=== PATIENT | female | born 1985 | race African-American/Black ===

== ENCOUNTER 2018-01-07 09:55 | Inpatient (IN) | payer OTHER ==
[2018-01-07] MEDS ORDERED: DEXTROSE 5%-LACTATED RINGERS 1,000 ML IV SCH (10:00)
[2018-01-07] MEDS ORDERED: OXYTOCIN 20 UNITS in 0.9% NS 20 UNIT/1,000 ML INFUS.BAG IV ONE ×2 (10:09→11:43)
[2018-01-07 10:46] LABS: VENOUS PC02 30.7 mmHg (38-52); VENOUS PH 7.46 (7.32-7.42); VENOUS PO2 46.5 mmHg (28-48)
[2018-01-07 10:48] LABS: ARTERIAL BLD GAS O2 SATURATION 30.8 % (90-98.9)
[2018-01-07 10:51] LABS: ARTERIAL BLOOD GAS PO2 18.9 mmHg (80-100)
[2018-01-07 10:56] VITALS: BMI 31.3
[2018-01-07 11:47] LABS: BASO % 0.2 % (0-2.0); EOS % 0.1 % (0-4.5); HEMATOCRIT 39.9 % (32.4-45.2); HEMOGLOBIN 13.5 GM/dL (10.7-15.3); LYMPH % 7.5 % (8-40); MCH 31.3 pg (25.7-33.7); MCHC 33.8 g/dl (32.0-36.0); MEAN CELL VOLUME 92.5 fl (80-96); MEAN PLT VOLUME 10.8 fl (7.5-11.1); MONO % 5.3 % (3.8-10.2); NEUT % 86.9 % (42.8-82.8); PLATELET COUNT 130 K/MM3 (134-434); RBC 4.32 M/mm3 (3.60-5.2); RDW 14.1 % (11.6-15.6); WHITE BLOOD COUNT 11.1 K/mm3 (4.0-10.0)
[2018-01-07 12:03] LABS: INR 0.94 (0.82-1.09); PROTHROMBIN TIME (PATIENT) 10.6 SEC (9.98-11.88)
[2018-01-07 12:05] LABS: ACTIVATED PTT 21.9 SECONDS (26.9-34.4)
[2018-01-07] MEDS ORDERED: WITCH HAZEL 50% (TUCKS) 40 PAD/JAR PAD TP PRN (12:07)
[2018-01-07] MEDS ORDERED: BISACODYL 10 MG SUPP.RECT RC PRN (12:07)
[2018-01-07] MEDS ORDERED: METHYLERGONOVINE MALEATE 0.2 MG/1 ML AMP IM PRN (12:07)
[2018-01-07] MEDS ORDERED: BENZOCAINE 28 GM HEMORRHOIDAL OINTMENT TP PRN (12:07)
[2018-01-07] MEDS ORDERED: BENZOCAINE 20% 57 GM BOTTLE TP PRN (12:07)
[2018-01-07] MEDS ORDERED: OXYTOCIN 20 UNITS in 0.9% NS 20 UNIT/1,000 ML INFUS.BAG IV SCH (12:15)
[2018-01-07] MEDS ORDERED: D5W-LR W/ 20 UNITS OXYTOCIN 1,000 ML IV SCH (12:15)
--- NOTE | 2018-01-07 12:16 | HP ---
Past Medical History - Primary Care Physician PCP:: Yovanny Devine - Admission Chief Complaint: 39 weeks , labor History of Present Illness: 32 yo f g 5 [id number] 39 weeks, in labor, cx full 100 vx 2+ . mi, bulging , had SROM , at delivery, meconium amniotic fluid, fhr cat 1, patient pushing History Source: Patient Limitations to Obtaining History: No Limitations - Past Medical History ...: 5 ...Para: 4 ...Term: 4 ...: 0 ...Spon : 0 ...Induced : 0 ...Multiple Gestation: 0 ...EDC by Sono: 01/10/18 - Past Surgical History Hx Myomectomy: No Hx Transabdominal Cerclage: No - Smoking History Smoking history: Never smoked Have you smoked in the past 12 months: No - Alcohol/Substance Use Hx Alcohol Use: No History of Substance Use: reports: None - Social History Usual Living Arrangement: Yes: With Spouse History of Recent Travel: No Home Medications - Allergies Allergies/Adverse Reactions: Allergies Allergy/AdvReac Type Severity Reaction Status Date / Time No Known Allergies Allergy Verified 01/07/18 11:09 - Home Medications Home Medications: Ambulatory Orders Plus Tablet 1 tab PO DAILY 07/21/16 Review of Systems - Review of Systems Constitutional: reports: No Symptoms Eyes: reports: No Symptoms HENT: reports: No Symptoms Neck: reports: No Symptoms Cardiovascular: reports: No Symptoms Respiratory: reports: No Symptoms Gastrointestinal: reports: No Symptoms Genitourinary: reports: No Symptoms Breasts: reports: No Symptoms Reported Musculoskeletal: reports: No Symptoms Integumentary: reports: No Symptoms Neurological: reports: No Symptoms Endocrine: reports: No Symptoms Hematology/Lymphatic: reports: No Symptoms Psychiatric: reports: No Symptoms Physical Exam - Maternity Vital Signs: Vital Signs Temperature 98.0 F 01/07/18 11:15 Pulse Rate 89 01/07/18 11:15 Respiratory Rate 18 01/07/18 11:15 Blood Pressure 124/80 01/07/18 11:15 O2 Sat by Pulse Oximetry (%) 100 01/07/18 11:15 Constitutional: Yes: Well Nourished, No Distress, Calm Eyes: Yes: WNL, Conjunctiva Clear, EOM Intact HENT: Yes: WNL, Atraumatic, Normocephalic Neck: Yes: WNL, Supple, Trachea Midline Cardiovascular: Yes: WNL, Regular Rate and Rhythm Breast(s): Yes: WNL - Abdominal Exam/OB Presentation: Vertex Contractions: Yes Regularity: Regular Intensity: Strong Monitor Mode: External Heart Rate Location: [facility] Category: I Accelerations: Uniform Decelerations: None - Vaginal Exam/OB Vaginal Bleediing: No Dilatation (cm): full Effacement (%): 100 Amniotic Membrane Status: Bulging Presentation: Vertex/Position Station: +2 - Physical Exam Musculoskeletal: Yes: WNL Extremities: Yes: WNL Edema: LLE: Trace, RLE: Trace Deep Tendon Reflex Grade: Normal +2 Psychiatric: Yes: WNL - Labs Lab Results: CBC, BMP 01/07/18 11:28 Hemorrhage Risk Assessment - Risk Factors Medium Risk Factors: Yes: Multiple gestation, None Risk Score: 2 Risk Level: High Risk Problem List - Problems (1) with 39 completed weeks gestation Code(s): Z3A.39 - 39 WEEKS GESTATION OF (2) Labor established Code(s): GKJ7821 - (3) Multiparity Code(s): Z64.1 - PROBLEMS RELATED TO MULTIPARITY Assessment/Plan admit for vaginal delivery . [facility]
[2018-01-07 12:17] LABS: ANION GAP 11 (8-16); BLOOD UREA NITROGEN 7 mg/dL (7-18); CALCIUM 8.8 mg/dL (8.5-10.1); CHLORIDE 107 mmol/L (98-107); CO2 22 mmol/L (21-32); CREATININE 0.6 mg/dL (0.55-1.02); GLUCOSE,RANDOM 93 mg/dL (74-106); POTASSIUM 3.8 mmol/L (3.5-5.1); SODIUM 140 mmol/L (136-145)
[2018-01-07] MEDS: FERROUS SO4 325 MG TABLET (FP) PO SCH (17:27)
[2018-01-08 07:33] LABS: BASO % 0.2 % (0-2.0); EOS % 0.8 % (0-4.5); HEMATOCRIT 37.5 % (32.4-45.2); HEMOGLOBIN 12.7 GM/dL (10.7-15.3); LYMPH % 14.7 % (8-40); MCH 31.4 pg (25.7-33.7); MEAN CELL VOLUME 92.5 fl (80-96); MEAN PLT VOLUME 10.5 fl (7.5-11.1); MONO % 7.6 % (3.8-10.2); NEUT % 76.7 % (42.8-82.8); PLATELET COUNT 128 K/MM3 (134-434); RBC 4.05 M/mm3 (3.60-5.2); RDW 14.1 % (11.6-15.6); WHITE BLOOD COUNT 11.9 K/mm3 (4.0-10.0)
[2018-01-08] MEDS: IBUPROFEN 600 MG TABLET (FP) PO PRN ×2 (08:11→17:22)
[2018-01-08] MEDS: FERROUS SO4 325 MG TABLET (FP) PO SCH ×2 (08:11→17:18)
[2018-01-08] MEDS: ACETAMINOPHEN 325 MG TABLET (FP) PO PRN ×2 (08:12→17:21)
[2018-01-08] MEDS: PRENATAL VITAMINS W/ FOLIC ACID TABLET (FP) PO SCH (09:20)
--- NOTE | 2018-01-08 09:31 | PN ---
Post Progress Note - Subjective Subjective: c/o perineal soreness Post Day: 1 Type of Delivery: Vital Signs: Vital Signs Temperature 98.7 F 01/08/18 05:59 Pulse Rate 77 01/08/18 05:59 Respiratory Rate 20 01/08/18 05:59 Blood Pressure 120/77 01/08/18 05:59 O2 Sat by Pulse Oximetry (%) 100 01/07/18 11:15 Breast Exam: Yes: Soft, Other (breast & bottle feeding ). No: Engorged Uterus: Yes: Fundus Firm, Fundus below umbilicus, Non-tender Lochia: Yes: Rubra Lochia, amount: Moderate Extremities: Yes: Calves non-tender Perineum: Yes: Laceration (healing well ) - Labs Labs: CBC WBC 11.9 K/mm3 (4.0-10.0) H 01/08/18 07:00 RBC 4.05 M/mm3 (3.60-5.2) 01/08/18 07:00 Hgb 12.7 GM/dL (10.7-15.3) 01/08/18 07:00 Hct 37.5 % (32.4-45.2) 01/08/18 07:00 MCV 92.5 fl (80-96) 01/08/18 07:00 MCH 31.4 pg (25.7-33.7) 01/08/18 07:00 MCHC 34.0 g/dl (32.0-36.0) 01/08/18 07:00 RDW 14.1 % (11.6-15.6) 01/08/18 07:00 Plt Count 128 K/MM3 (134-434) L 01/08/18 07:00 MPV 10.5 fl (7.5-11.1) 01/08/18 07:00 Neutrophils % 76.7 % (42.8-82.8) 01/08/18 07:00 Lymphocytes % 14.7 % (8-40) D 01/08/18 07:00 Monocytes % 7.6 % (3.8-10.2) 01/08/18 07:00 Eosinophils % 0.8 % (0-4.5) D 01/08/18 07:00 Basophils % 0.2 % (0-2.0) 01/08/18 07:00 Problem List - Problems (1) (normal spontaneous vaginal delivery) Code(s): O80 - ENCOUNTER FOR FULL-TERM UNCOMPLICATED DELIVERY Assessment/Plan stable. plan : ct pp care. discharge tomorrow.
[2018-01-08 20:47] VITALS: PULSE 81; TEMP 97.3
[2018-01-08] MEDS ORDERED: SENNOSIDES/DOCUSATE COMBO (SENNA PLUS) TABLET (UD) PO PRN (22:00)
--- NOTE | 2018-01-09 07:19 | PN ---
Post Progress Note - Subjective Subjective: no complains except some perineal soreness Post Day: 2 Type of Delivery: Vital Signs: Vital Signs Temperature 97.3 F L 01/08/18 20:46 Pulse Rate 81 01/08/18 20:46 Respiratory Rate 20 01/08/18 20:46 Blood Pressure 130/80 01/08/18 20:46 O2 Sat by Pulse Oximetry (%) 100 01/07/18 11:15 Breast Exam: Yes: Soft Uterus: Yes: Fundus Firm, Fundus below umbilicus, Non-tender Lochia: Yes: Rubra Lochia, amount: Moderate Extremities: Yes: Calves non-tender Perineum: Yes: Laceration Activity: Ambulating - Labs Labs: CBC WBC 11.9 K/mm3 (4.0-10.0) H 01/08/18 07:00 RBC 4.05 M/mm3 (3.60-5.2) 01/08/18 07:00 Hgb 12.7 GM/dL (10.7-15.3) 01/08/18 07:00 Hct 37.5 % (32.4-45.2) 01/08/18 07:00 MCV 92.5 fl (80-96) 01/08/18 07:00 MCH 31.4 pg (25.7-33.7) 01/08/18 07:00 MCHC 34.0 g/dl (32.0-36.0) 01/08/18 07:00 RDW 14.1 % (11.6-15.6) 01/08/18 07:00 Plt Count 128 K/MM3 (134-434) L 01/08/18 07:00 MPV 10.5 fl (7.5-11.1) 01/08/18 07:00 Neutrophils % 76.7 % (42.8-82.8) 01/08/18 07:00 Lymphocytes % 14.7 % (8-40) D 01/08/18 07:00 Monocytes % 7.6 % (3.8-10.2) 01/08/18 07:00 Eosinophils % 0.8 % (0-4.5) D 01/08/18 07:00 Basophils % 0.2 % (0-2.0) 01/08/18 07:00 Problem List - Problems (1) (normal spontaneous vaginal delivery) Code(s): O80 - ENCOUNTER FOR FULL-TERM UNCOMPLICATED DELIVERY Assessment/Plan stable . plan discharge today
[2018-01-09] MEDS: ACETAMINOPHEN 325 MG TABLET (FP) PO PRN (07:50)
[2018-01-09] MEDS: FERROUS SO4 325 MG TABLET (FP) PO SCH (07:50)
[2018-01-09] MEDS: IBUPROFEN 600 MG TABLET (FP) PO PRN (07:51)
[2018-01-09 07:58] VITALS: BP 123/76
[2018-01-09] MEDS: PRENATAL VITAMINS W/ FOLIC ACID TABLET (FP) PO SCH (10:02)
--- NOTE | 2018-01-09 18:09 | DS ---
Physical Exam-[employer] Vital Signs: Vital Signs Temperature 97.3 F L 01/08/18 20:46 Pulse Rate 81 01/08/18 20:46 Respiratory Rate 20 01/09/18 07:57 Blood Pressure 123/76 01/09/18 07:57 O2 Sat by Pulse Oximetry (%) 100 01/07/18 11:15 Constitutional: Yes: Well Nourished, No Distress, Calm Eyes: Yes: WNL, Conjunctiva Clear, EOM Intact HENT: Yes: WNL, Atraumatic, Normocephalic Neck: Yes: WNL, Supple, Trachea Midline Cardiovascular: Yes: WNL, Regular Rate and Rhythm Respiratory: Yes: WNL, Regular, CTA Bilaterally Gastrointestinal: Yes: WNL ...Rectal Exam: Yes: WNL Renal/: Yes: WNL ....Post : Yes: Uterus firm, Uterus non-tender, Slight lochia rubra Breast(s): Yes: WNL Musculoskeletal: Yes: WNL Extremities: Yes: WNL Edema: No Integumentary: Yes: WNL Neurological: Yes: WNL, Alert, Oriented ...Motor Strength: WNL Psychiatric: Yes: WNL, Alert, Oriented Labs: CBC, BMP 01/08/18 07:00 01/07/18 11:28 Delivery - Delivery Vaginal Delivery: Spontaneous Type of Anesthesia: Local Episiotomy/Laceration: 1st degree EBL (cc): 300 Delivery, Single - Stages of Labor Date 1st Stage Initiatied: 01/07/18 Time 1st Stage Initiated: 06:00 Date 2nd Stage Initiated: 01/07/18 Time 2nd Stage Initiated: 10:00 Date of Delivery: 01/07/18 Time of Delivery: 10:09 Time Placenta Delivered: 10:12 Placenta: Yes: Spontaneous - 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 Infant Gender: Female Weight: 7 lb 7 oz Position: Left, OA Total Hours ROM (Hrs/Mins): 5mins - 1 Minute Total Score: 9 5 Minutes Total Score: 9 - Feeding Plan Initial Plan: Elected not to breastfeed exclusively throughout hospitalization Discharge Summary Reason For Visit: LABOR Procedures: Principal: Hospital Course: non complicated Condition: Stable - Instructions Diet, Activity, Other Instructions: Discharge Instructions * Out of Bed * * Regular Diet * Lisette Care * Avoid sex for 6 weeks * RTC 6 weeks If you experience excessive bleeding or fever over 101 degrees, call doctor, the clinic or go to the Emergency Room. Referrals: Yovanny Devine MD [Staff Physician] - Disposition: HOME - Home Medications Comprehensive Discharge Medication List: Ambulatory Orders Plus Tablet 1 tab PO DAILY 07/21/16 Acetaminophen [Tylenol .Regular Strength -] 650 mg PO Q3H PRN tablet 01/09/18 Benzocaine [Americaine 20% [place] -] 1 spray TP PRN PRN bottle 01/09/18 Ibuprofen [Motrin -] 200 mg PO Q4H PRN tablet 01/09/18 Vitamins ([facility]) - 1 tab PO DAILY #30 tablet 01/09/18
== END 2018-01-09 12:15 | disposition home or self-care (01) | DRG 560 ==
LOC: JLDR 09:55 → J3W 12:28
PROVIDERS: ADMIT Obstetrics & Gynecology; ATTEND Obstetrics & Gynecology
PROC: 10E0XZZ Delivery of Products of Conception, External Approach (ICD-10-PCS; principal; 2018-01-07)
PROC: 0HQ9XZZ Repair Perineum Skin, External Approach (ICD-10-PCS; 2018-01-07)
DX: O70.0 First degree perineal laceration during delivery (principal); Z3A.39 39 weeks gestation of pregnancy; Z37.0 Single live birth
CPT/HCPCS: 36415; 36600; 59409; 80048; 82803; 85025; 85610; 85730; 86593; 86850; 86900; 86901

== ENCOUNTER 2022-11-17 16:53 | Emergency (ER) | payer OTHER ==
[2022-11-17 17:03] VITALS: BP 189/94; PULSE 84; RESP 18; TEMP 98.1; BMI 26.1
[2022-11-17] MEDS ORDERED: DIPHTH,PERTUSS(ACELL),TET 0.5 ML DISP.SYRIN IM ONE ×2 (17:38→17:43)
== END 2022-11-17 19:03 | disposition home or self-care (01) ==
LOC: JERFT 16:53
PROC: 0HQFXZZ Repair Right Hand Skin, External Approach (ICD-10-PCS; principal; 2022-11-17)
DX: S61.214A Laceration without foreign body of right ring finger without damage to nail, initial encounter (principal); W26.0XXA Contact with knife, initial encounter
CPT/HCPCS: 73140-TC-RT-FY; 99283-25

== ENCOUNTER 2022-11-19 11:07 | Emergency (ER) | payer OTHER ==
[2022-11-19 11:53] VITALS: BP 168/98; PULSE 102; RESP 16; TEMP 98.1; BMI 25.7
== END 2022-11-19 12:05 | disposition home or self-care (01) ==
LOC: JER 11:07
DX: Z48.817 Encounter for surgical aftercare following surgery on the skin and subcutaneous tissue (principal)
CPT/HCPCS: 99281-25

== ENCOUNTER 2022-11-27 10:36 | Emergency (ER) | payer OTHER ==
[2022-11-27 10:56] VITALS: BP 156/92; PULSE 100; RESP 18; TEMP 98.4; BMI 25.7
== END 2022-11-27 11:44 | disposition home or self-care (01) ==
LOC: JER 10:36 → JERFT 10:36
DX: Z48.02 Encounter for removal of sutures (principal)
CPT/HCPCS: 99281-25